=== PATIENT | female | born 1965 | race Caucasian/White ===

== ENCOUNTER → 2016-07-06 | Outpatient (REF) | payer OTHER ==
[~2016-07-06] MED LIST: BACITAB PO; DAPT50VL IV; FERR325T3 PO; LEVO175T PO; MOXI400IV IV; MULTTAB4 PO; SYNT175T2 PO; TYLE325T5 PO; [UNRECOGNIZED DRUG - CODE] PO
[2016-07-06 12:17] LABS: CALCIUM LEVEL 8.4 MG/DL (8.5-10.1)
== END ==
LOC: M SFHCCLAY 09:20
PROVIDERS: ATTEND Nurse Practitioner Family
DX: I10 Essential (primary) hypertension (principal); E78.4 Other hyperlipidemia; E55.9 Vitamin D deficiency, unspecified

== ENCOUNTER → 2017-01-25 | Outpatient (REF) | payer OTHER ==
[2017-01-25 12:39] LABS: MEAN CORPUSCULAR HEMOGLOBIN 25.6 pg (27.0-33.0); MEAN CORPUSCULAR VOLUME 80.1 fl (80.0-96.0); WHITE BLOOD COUNT 4.9 K/mm3 (4.0-10.0)
[2017-01-25 12:43] LABS: ALBUMIN 3.9 GM/DL (3.2-5.2); ALBUMIN/GLOBULIN RATIO 1.05 (1.00-1.93); ALKALINE PHOSPHATASE 88 U/L (45-117); ALT/SGPT 32 U/L (12-78); ANION GAP 9 MEQ/L (8-16); AST/SGOT 13 U/L (15-37); BILIRUBIN,TOTAL 0.5 MG/DL (0.2-1.0); BLOOD UREA NITROGEN 15 MG/DL (7-18); CALCIUM LEVEL 8.8 MG/DL (8.5-10.1); CARBON DIOXIDE LEVEL 27 MEQ/L (21-32); CHLORIDE LEVEL 106 MEQ/L (98-107); CHOLESTEROL LEVEL 216 MG/DL (<200); CREATININE FOR GFR 0.69 MG/DL (0.55-1.02); GLOMERULAR FILTRATION RATE > 60.0 (>58); GLUCOSE, FASTING 80 MG/DL (70-105); POTASSIUM SERUM 4.2 MEQ/L (3.5-5.1); SODIUM LEVEL 142 MEQ/L (136-145); TOTAL PROTEIN 7.6 GM/DL (6.4-8.2); TRIGLYCERIDES LEVEL 89 MG/DL (<150)
== END ==
LOC: M SFHCCLAY 08:13
PROVIDERS: ATTEND Nurse Practitioner Family
DX: I10 Essential (primary) hypertension (principal); E78.4 Other hyperlipidemia; E03.9 Hypothyroidism, unspecified; E55.9 Vitamin D deficiency, unspecified

== ENCOUNTER → 2017-05-16 | Outpatient (CLI) | payer OTHER ==
[2017-05-16 14:38] LABS: BASO # 0.1 10^3/uL (0.0-0.2); EOS # 0.1 10^3/uL (0.0-0.50); EOS % 2.6 % (0.0-3.0); IMMATURE GRANULOCYTE % 0.2 % (0-0); LYMPH % 19.8 % (24.0-44.0); MEAN CORPUSCULAR HEMOGLOBIN 25.5 pg (27.0-33.0); MEAN CORPUSCULAR HGB CONC 31.7 g/dl (32.0-36.5); MEAN CORPUSCULAR VOLUME 80.5 fl (80.0-96.0); MONO # 0.4 10^3/uL (0.0-0.8); MONO % 8.1 % (0.0-5.0); NEUTROPHILS # 3.5 10^3/uL (1.8-7.7); NEUTROPHILS % 68.3 % (36.0-66.0); PLATELET COUNT, AUTOMATED 207 10^3/uL (150-450); RED CELL DISTRIBUTION WIDTH 13.2 % (11.5-14.5); WHITE BLOOD COUNT 5.1 10^3/uL (4.0-10.0)
[2017-05-16 14:56] LABS: ALBUMIN 3.9 GM/DL (3.2-5.2); ALBUMIN/GLOBULIN RATIO 1.05 (1.00-1.93); ALKALINE PHOSPHATASE 90 U/L (45-117); ALT/SGPT 16 U/L (12-78); ANION GAP 4 MEQ/L (8-16); AST/SGOT 11 U/L (7-37); BILIRUBIN,TOTAL 0.4 MG/DL (0.2-1.0); BLOOD UREA NITROGEN 9 MG/DL (7-18); CALCIUM LEVEL 8.4 MG/DL (8.5-10.1); CARBON DIOXIDE LEVEL 31 MEQ/L (21-32); CHLORIDE LEVEL 105 MEQ/L (98-107); CREATININE FOR GFR 0.58 MG/DL (0.55-1.02); FOLATE 17.4 NG/ML; GLOMERULAR FILTRATION RATE > 60.0 (>58); GLUCOSE, FASTING 73 MG/DL (70-105); POTASSIUM SERUM 4.2 MEQ/L (3.5-5.1); SODIUM LEVEL 140 MEQ/L (136-145); TOTAL PROTEIN 7.6 GM/DL (6.4-8.2)
[2017-05-16 14:58] LABS: VITAMIN B12 LEVEL 829 PG/ML
== END ==
LOC: M LABNEURO 10:30
PROVIDERS: ATTEND Psychiatry & Neurology Neurology
DX: R56.9 Unspecified convulsions (principal)

== ENCOUNTER → 2017-06-16 | Outpatient (REF) | payer OTHER ==
[2017-06-16 16:43] LABS: FREE T4 1.26 NG/DL (0.76-1.46)
== END ==
LOC: M LABDRAW1 15:50
PROVIDERS: ATTEND Nurse Practitioner Family
DX: E89.0 Postprocedural hypothyroidism (principal)

== ENCOUNTER → 2018-12-07 | Outpatient (REF) | payer OTHER ==
[~2018-12-07] MED LIST changes: +AMOX875T2; +AVEL1INJ IV; +LEVO137T2; +LISI-538; -MOXI400IV IV
== END ==
LOC: M SFHCCLAY 15:49
PROVIDERS: ATTEND Nurse Practitioner Family
DX: R35.0 Frequency of micturition (principal)
CPT/HCPCS: 81002; 87088; 87186; G0463

== ENCOUNTER 2018-12-19 22:01 | Emergency (ER) | payer OTHER ==
[~2018-12-19] VITALS: Ht 152.4 cm; Wt 69.1 kg
[~2018-12-19 22:01] MED LIST changes: -AMOX875T2; -LEVO137T2; -LISI-538
[2018-12-19] MEDS ORDERED: LISI-538 (22:12)
[2018-12-19] MEDS ORDERED: AMOX875T2 (22:12)
[2018-12-19] MEDS ORDERED: LEVO137T2 (22:12)
[2018-12-19 22:48] LABS: BASO # 0.1 10^3/uL (0.0-0.2); BASO % 0.8 % (0.0-1.0); EOS # 0.2 10^3/uL (0.0-0.50); HEMATOCRIT 40.4 % (36.0-47.0); HEMOGLOBIN 12.9 g/dl (12.0-15.5); LYMPH % 27.3 % (24.0-44.0); MEAN CORPUSCULAR HEMOGLOBIN 26.2 pg (27.0-33.0); MEAN CORPUSCULAR HGB CONC 31.9 g/dl (32.0-36.5); MEAN CORPUSCULAR VOLUME 81.9 fl (80.0-96.0); MONO # 0.5 10^3/uL (0.0-0.8); MONO % 6.9 % (0.0-5.0); NEUTROPHILS # 4.6 10^3/uL (1.8-7.7); NEUTROPHILS % 61.5 % (36.0-66.0); PLATELET COUNT, AUTOMATED 324 10^3/uL (150-450); RED BLOOD COUNT 4.93 10^6/uL (4.00-5.40); WHITE BLOOD COUNT 7.4 10^3/uL (4.0-10.0)
[2018-12-19 23:06] LABS: ALBUMIN 3.5 GM/DL (3.2-5.2); ALT/SGPT 27 U/L (12-78); BILIRUBIN,DIRECT < 0.1 MG/DL (0.0-0.2); BILIRUBIN,TOTAL 0.3 MG/DL (0.2-1.0); BLOOD UREA NITROGEN 15 MG/DL (7-18); CALCIUM LEVEL 8.3 MG/DL (8.5-10.1); CARBON DIOXIDE LEVEL 28 MEQ/L (21-32); CHLORIDE LEVEL 106 MEQ/L (98-107); CREATININE FOR GFR 0.68 MG/DL (0.55-1.30); GLOMERULAR FILTRATION RATE > 60.0 (>51); GLUCOSE, FASTING 86 MG/DL (70-100); LIPASE 242 U/L (73-393); POTASSIUM SERUM 4.2 MEQ/L (3.5-5.1); SODIUM LEVEL 140 MEQ/L (136-145); TOTAL PROTEIN 7.5 GM/DL (6.4-8.2)
[2018-12-20] MEDS ORDERED: ISOVUE-370 76% 100ML VIAL (Q9967) As Ordered ONE (02:31)
[2018-12-20 02:50] VITALS: BP 133/65
--- NOTE | 2018-12-20 04:02 | REPVR ---
EXAM: CT Abdomen and Pelvis With Contrast EXAM DATE/TIME: 12/20/2018 2:26 AM CLINICAL HISTORY: 53 years old, female; Abdominal pain; Epigastric, rlq abd pain TECHNIQUE: Imaging protocol: Axial computed tomography images of the abdomen and pelvis with intravenous contrast. Coronal and sagittal reformatted images were created and reviewed. Radiation optimization: All CT scans at this facility use at least one of these dose optimization techniques: automated exposure control; mA and/or kV adjustment per patient size (includes targeted exams where dose is matched to clinical indication); or iterative reconstruction. Contrast material: ISO; Contrast volume: 100 ml; Contrast route: AC; COMPARISON: CT ABD PELVIS W/O CONTRAST 04/26/2013 3:58 PM FINDINGS: Tubes, catheters and devices: There is a ventriculoperitoneal shunt catheter descending the left anterior chest wall and entering into the peritoneal cavity in the left side of the abdomen and terminating in the right upper quadrant of the abdomen just anterior to the inferior aspect of the falciform ligament. Lungs: There is mild dependent atelectasis in both lower lobes. Heart: No cardiomegaly. No pericardial effusion. Liver: Unremarkable. No liver lesion is seen. The contour of the liver is smooth. No hepatomegaly is noted. Gallbladder and bile ducts: No calcified gallstones are seen. No gallbladder wall thickening, pericholecystic fluid, or pericholecystic inflammatory changes are identified. No dilation of the intrahepatic or extrahepatic bile ducts is noted. Pancreas: Normal. No ductal dilation. Spleen: Normal. No splenomegaly. Adrenals: Normal. No mass. Kidneys and ureters: There are wedge-shaped areas of low attenuation in the right kidney, which can be seen with pyelonephritis. The left kidney is unremarkable. No renal lesion is identified. No calculi are seen in the kidneys or ureters. There is no hydronephrosis or hydroureter. No perinephric fluid collection is noted. Stomach and bowel: The stomach is decompressed, limiting its optimal evaluation. There is colonic diverticulosis without evidence for diverticulitis. There is no evidence for a bowel obstruction, colitis, pneumatosis intestinalis, intussusception, volvulus, or perforated viscus. There is a mild to moderate amount of formed stool in the colon. Appendix: Normal. No evidence for appendicitis. Intraperitoneal space: No free air. There is a small amount of free fluid in the cul-de-sac that measures water density. Vasculature: The abdominal aorta is patent, normal in caliber, and there is no dissection. The iliac arteries, common femoral arteries, renal arteries, celiac artery, superior mesenteric artery, and inferior mesenteric artery are patent. The portal veins and splenic vein are patent. Lymph nodes: Normal. No enlarged lymph nodes. Bladder: Unremarkable. No calculi are noted in the bladder. Reproductive: The anteverted uterus contains a small calcified intramural fibroid in the anterior aspect of the fundus. There is a 1.6 cm left ovarian cyst without septations, solid nodular components, calcifications, or fatty components for which follow-up is not necessary. The right ovary is unremarkable. Bones/joints: The imaged bony structures are intact. There are degenerative changes in the lumbar spine, most severe at the L5-S1 level, and a mild dextroscoliosis of the lumbar spine. There is a grade 1 anterolisthesis of L4 on L5 secondary to osteoarthritis of the L4-L5 facet joints. There is a sclerotic lesion in the T11 vertebral body, which is unchanged compared to the prior CT scan on 04/26/2013 and compatible with a bone island. Another small bone island is noted in the posterior column of the right acetabulum, which is also unchanged compared to the prior CT scan on 04/26/2013. Soft tissues: Unremarkable. IMPRESSION: 1. CT evidence for right pyelonephritis. No abscess. 2. Normal appendix. 3. Colonic diverticulosis without evidence for diverticulitis. 4. Uterine fibroid. Electronically signed by: Sadiq Mcpherson On 12/20/2018 04:01:22 AM
[2018-12-20] MEDS ORDERED: METAL LOCK LOOP XX ONE (05:01)
== END 2018-12-20 05:10 | disposition home or self-care (01) ==
LOC: M ED 22:01
DX: R10.9 Unspecified abdominal pain (principal); Z88.1 Allergy status to other antibiotic agents; Z88.8 Allergy status to other drugs, medicaments and biological substances; Z79.899 Other long term (current) drug therapy
CPT/HCPCS: 36415; 74177; 80048; 80076; 81001; 83690; 85025; 99284; Q9967

== ENCOUNTER → 2019-01-04 | Outpatient (CLI) | payer OTHER ==
[~2019-01-04] MED LIST changes: +AMOX875T2; +LEVO137T2; +LISI-538
--- NOTE | 2019-01-04 18:31 | REP ---
CT study of the brain without contrast: History: History of shunt placement. Comparison CT study of the brain is from June 07, 2013. There is a remote prior CT brain from August 17, 2006. Brain MRI study is from April 25, 2013. CT findings: There is a previous left frontal bone craniotomy defect with prosthesis in place again noted. There is some underlying dural calcification noted unchanged. There is encephalomalacia in the left frontal lobe periventricular and peripheral cortical white matter. The previous study in May 2013 shows some postoperative air here. There is a left sided ventriculostomy tube noted in the body of the lateral ventricle extending to the frontal horn unchanged in position from the most recent prior study of June 07, 2013. The lateral ventricle on the left is smaller in size generally than it was in June 15, 2013. There is an old craniotomy defect for the previously noted right-sided ventriculostomy tube which has been removed in the interval since the 2006 study. There is some encephalomalacia underlying the tract for this in the right posterior frontal lobe. No extra-axial fluid collection is seen. No mass or midline shift is observed. Impression: Postoperative changes. Left sided ventriculostomy catheter in place. No evidence of significant ventricular enlargement. There is evidence of low malacia in the left frontal lobe right posterior frontal-parietal region. Electronically Signed by Johnathan Huitron MD 01/05/2019 08:03 A
== END ==
LOC: M RAD 15:32
PROVIDERS: ATTEND Psychiatry & Neurology Neurology
DX: Z95.5 Presence of coronary angioplasty implant and graft (principal)

== ENCOUNTER → 2021-03-19 | Outpatient (CLI) | payer OTHER ==
[~2021-03-19] MED LIST changes: -LISI-538; +LISI20TA33
--- NOTE | 2021-03-19 15:08 | REPVR ---
PROCEDURE INFORMATION: Exam: CT Head Without Contrast Exam date and time: 03/19/2021 2:54 PM Age: 55 years old Clinical indication: Other: Eval shunt; Additional info: Evaluate shunt TECHNIQUE: Imaging protocol: Computed tomography of the head without contrast. Radiation optimization: All CT scans at this facility use at least one of these dose optimization techniques: automated exposure control; mA and/or kV adjustment per patient size (includes targeted exams where dose is matched to clinical indication); or iterative reconstruction. COMPARISON: CT Head without contrast 01/04/2019 3:44 PM FINDINGS: Brain: No hemorrhage or edema seen. Areas of bilateral frontal lobe encephalomalacia, as before. Cerebral ventricles: There is a left transparietal ventriculoperitoneal shunt catheter with tip in the posterior left horn, stable. The ventricles are stable in size. No interval ventriculomegaly. Ex vacuo enlargement of the horn the left lateral ventricle. Paranasal sinuses: Visualized sinuses are unremarkable. No fluid levels. Mastoid air cells: Visualized mastoid air cells are well aerated. Bones/joints: Prior left frontal craniectomy with cranioplasty. There are old calvarial ebonie holes. No acute fracture seen. Soft tissues: Unremarkable. IMPRESSION: No acute intracranial abnormality seen. Electronically signed by: Angi Cherry On 03/19/2021 15:08:53 PM
--- NOTE | 2021-03-19 18:12 | REP ---
INDICATION: EVALUATE SHUNT- CT FIRST. COMPARISON: Shunt series 04/25/2013, CT brain today. TECHNIQUE: AP and lateral skull, a frontal and lateral view chest, frontal and lateral view abdomen and pelvis. FINDINGS: Patient has had a prior left frontal craniectomy. Left ventriculoperitoneal shunt is visualized, the proximal tip is in the left frontal region. The shunt courses inferiorly across the anterior aspect of the left hemithorax and enters the left upper quadrant of the abdomen. The distal end is coiled in the pelvis. There is no evidence of kinking or discontinuity of the shunt tubing. There is a small segment of old shunt tubing in the right neck soft tissues. The lungs are clear. The heart and mediastinum are within normal limits. There is a normal bowel gas pattern. IMPRESSION: Left ventriculoperitoneal shunt as discussed in detail above. <Electronically signed by Hollis Arroyo > 03/19/21 [id number]
== END ==
LOC: M RAD 14:41
DX: Z98.2 Presence of cerebrospinal fluid drainage device (principal)

== ENCOUNTER 2021-09-17 06:16 | Emergency (ER) | payer OTHER ==
[2021-09-17 06:48] LABS: BASO # 0.1 10^3/uL (0.0-0.2); EOS # 0.3 10^3/uL (0.0-0.5); EOS % 5.4 % (0.0-3.0); HEMATOCRIT 44.3 % (36.0-47.0); HEMOGLOBIN 14.2 g/dl (12.0-15.5); LYMPH # 1.8 10^3/uL (1.5-5.0); LYMPH % 28.5 % (24.0-44.0); MEAN CORPUSCULAR HEMOGLOBIN 25.3 pg (27.0-33.0); MEAN CORPUSCULAR HGB CONC 32.1 g/dl (32.0-36.5); MONO # 0.5 10^3/uL (0.0-0.8); MONO % 8.3 % (2.0-8.0); NEUTROPHILS # 3.5 10^3/uL (1.5-8.5); NEUTROPHILS % 56.5 % (36.0-66.0); PLATELET COUNT, AUTOMATED 300 10^3/uL (150-450); RED BLOOD COUNT 5.61 10^6/uL (4.00-5.40); WHITE BLOOD COUNT 6.2 10^3/uL (4.0-10.0)
[2021-09-17 07:02] LABS: INR 0.91; PROTHROMBIN TIME 12.7 SECONDS (12.7-14.5)
[2021-09-17 07:03] LABS: PARTIAL THROMBOPLASTIN TIME 33.9 SECONDS (25.9-37.0)
[2021-09-17 07:11] LABS: BLOOD UREA NITROGEN 13 MG/DL (7-18); CARBON DIOXIDE LEVEL 29 MEQ/L (21-32); CHLORIDE LEVEL 107 MEQ/L (98-107); CREATININE FOR GFR 0.84 MG/DL (0.55-1.30); GLOMERULAR FILTRATION RATE > 60.0 (>51); GLUCOSE, FASTING 89 MG/DL (70-100); SODIUM LEVEL 140 MEQ/L (136-145)
[2021-09-17 07:14] LABS: CPK CREATINE PHOSPHOKINASE 90 U/L (26-192)
[2021-09-17 07:15] LABS: CK-MB VALUE MASS < 1.0 NG/ML (<3.6); MB/CK RELATIVE INDEX 1.11 (< OR =4)
[2021-09-17] MEDS ORDERED: levETIRAcetam INJection 500 MG in D5W MINI-BAG PLUS 100 ML IV ONE (08:25)
[2021-09-17] MEDS ORDERED: NS 1,000 ML IV SCH (08:30)
[2021-09-17 08:32] LABS: RSV AMPLIFICATION NEGATIVE (NEGATIVE)
[2021-09-17 09:00] VITALS: BP 142/89
== END 2021-09-17 09:14 | disposition short-term general hospital (02) ==
LOC: M ED 06:16
DX: I62.01 Nontraumatic acute subdural hemorrhage (principal); I10 Essential (primary) hypertension; E78.5 Hyperlipidemia, unspecified; Z88.1 Allergy status to other antibiotic agents; Z88.8 Allergy status to other drugs, medicaments and biological substances; Z98.2 Presence of cerebrospinal fluid drainage device
CPT/HCPCS: 70450; 71045; 75809; 80048; 82550; 82553; 84484; 85025; 85610; 85730; 87631; 93005; 93041; 94760; 96365; 99285; J1953

== ENCOUNTER 2023-11-13 22:48 | Emergency (ER) | payer OTHER ==
[~2023-11-13] VITALS: Ht 152.4 cm; Wt 63.8 kg
[2023-11-13] MEDS ORDERED: LISI10TA22 PO (23:02)
[2023-11-13 23:11] VITALS: TEMP 98
[2023-11-13 23:49] LABS: BASO # 0.1 10^3/uL (0.0-0.2); BASO % 0.9 % (0.0-1.0); EOS # 0.4 10^3/uL (0.0-0.5); EOS % 5.5 % (0.0-3.0); HEMATOCRIT 40.7 % (36.0-47.0); HEMOGLOBIN 13.3 g/dl (12.0-15.5); LYMPH # 1.8 10^3/uL (1.5-5.0); LYMPH % 25.7 % (24.0-44.0); MEAN CORPUSCULAR HEMOGLOBIN 26.1 pg (27.0-33.0); MEAN CORPUSCULAR HGB CONC 32.7 g/dl (32.0-36.5); MEAN CORPUSCULAR VOLUME 79.8 fl (80.0-96.0); MONO # 0.4 10^3/uL (0.0-0.8); MONO % 6.4 % (2.0-8.0); NEUTROPHILS # 4.2 10^3/uL (1.5-8.5); NEUTROPHILS % 61.2 % (36.0-66.0); PLATELET COUNT, AUTOMATED 232 10^3/uL (150-450); WHITE BLOOD COUNT 6.9 10^3/uL (4.0-10.0)
[2023-11-14 00:16] LABS: LIPASE 49 U/L (12-53)
[2023-11-14 00:17] LABS: C REACTIVE PROTEIN QUANTITATIV < 0.40 MG/DL (<1.0)
[2023-11-14 00:19] LABS: ALBUMIN 3.9 G/DL (3.2-5.2); ALKALINE PHOSPHATASE 104 U/L (46-116); ALT/SGPT 18 U/L (7.0-40); AST/SGOT 11 U/L (<34); BILIRUBIN,DIRECT < 0.1 MG/DL (<0.4); BILIRUBIN,TOTAL 0.3 MG/DL (0.3-1.2); BLOOD UREA NITROGEN 17 MG/DL (9-23); CALCIUM LEVEL 8.3 MG/DL (8.5-10.1); CARBON DIOXIDE LEVEL 29 MMOL/L (20-31); CHLORIDE LEVEL 105 MMOL/L (98-107); CREATININE FOR GFR 0.74 MG/DL (0.55-1.30); GLOMERULAR FILTRATION RATE > 60.0 (>51); GLUCOSE, FASTING 82 MG/DL (60-100); POTASSIUM SERUM 3.6 MMOL/L (3.5-5.1); SODIUM LEVEL 141 MMOL/L (136-145); TOTAL PROTEIN 7.1 G/DL (5.7-8.2)
[2023-11-14] MEDS ORDERED: ISOVUE-370 76% 100ML VIAL As Ordered ONE (00:29)
[2023-11-14] MEDS ORDERED: KEPP500T13 PO (01:09)
[2023-11-14] MEDS ORDERED: SYNT137T7 PO (01:09)
[2023-11-14] MEDS ORDERED: HOME MED LIST COMPLETE! XX SCH (01:15)
[2023-11-14 02:00] VITALS: BP 122/68; O2SAT 99
== END 2023-11-14 02:24 | disposition home or self-care (01) ==
LOC: M ED 22:48
DX: T20.15XA Burn of first degree of scalp [any part], initial encounter (principal); E03.9 Hypothyroidism, unspecified; F10.10 Alcohol abuse, uncomplicated; Z88.8 Allergy status to other drugs, medicaments and biological substances; Z79.899 Other long term (current) drug therapy
CPT/HCPCS: 36415; 70450; 74177; 75809; 80048; 80076; 83605; 83690; 85025; 86140; 87040; 87635; 93041; 99284; Q9967

== ENCOUNTER → 2024-09-14 | Outpatient (CLI) | payer OTHER ==
[~2024-09-14] MED LIST changes: +KEPP500T13 PO; +LISI10TA22 PO; +SYNT137T7 PO
== END ==
LOC: M WHC 10:47
PROVIDERS: ATTEND Internal Medicine
DX: D25.9 Leiomyoma of uterus, unspecified (principal); R10.2 Pelvic and perineal pain